=== PATIENT | female | born 1990 | race Caucasian/White ===

== ENCOUNTER 2021-08-13 19:50 | Emergency (ER) | payer BC, OTHER ==
[2021-08-13] MEDS ORDERED: BABY ASPIRIN 81 MG CHEW PO ONE (20:07)
--- NOTE | 2021-08-13 20:07 | ERPHSYRPT ---
- History of Present Illness Time Seen by Provider: 08/13/21 20:07 Historian: patient Exam Limitations: no limitations Physician History: This is a overweight 30-year-old white female who complains of left chest tenderness that describes as pulling tightening pressure that is been intermittent today. She has had tenderness in the left chest in the past but it was more of a burning sensation. Patient does have a history of cholelithiasis and is scheduled to have her gallbladder removed. She is unsure if this is what is causing her discomfort. She is not short of breath. She herself has no coronary artery disease. She is not on any medications chronically. She does have a family history of coronary artery disease. She has no bleeding or clotting disorders. She has no cough. She had no fever or flulike symptoms. At the time of this examination, she has no chest pain. Timing/Duration: today Activities at Onset: none Quality: pressure, tightness, other (Left anterior chest) Location: other (Left anterior chest) Chest Pain Radiation: no radiation Severity of Pain-Max: mild (Moderate) Severity of Pain-Current: none Modifying Factors: Improves With: nothing Associated Symptoms: denies symptoms Prior Chest Pain/Cardiac Workup: no prior chest pain, no prior cardiac workup Nitro Today/Relief: no nitro taken today Aspirin Treatment Today: no aspirin today Allergies/Adverse Reactions: No Known Drug Allergies Allergy (Verified 08/13/21 20:05) Home Medications: Mv-Mins/Folic Acid/Guarana/Caf [One Daily Tablet] 1 each PO DAILY 08/13/21 [History] Travel Risk - International Travel Have you traveled outside of the country in past 3 weeks: No - Coronavirus Screening Are you exhibiting any of the following symptoms?: No Close contact with a COVID-19 positive Pt in past 14-21 Days: No - Review of Systems Constitutional: No Symptoms Eyes: No Symptoms Ears, Nose, & Throat: No Symptoms Respiratory: No Symptoms Cardiac: Chest Pain Abdominal/Gastrointestinal: No Symptoms Genitourinary Symptoms: No Symptoms Musculoskeletal: No Symptoms Skin: No Symptoms Neurological: No Symptoms Psychological: No Symptoms Endocrine: No Symptoms Hematologic/Lymphatic: No Symptoms Immunological/Allergic: No Symptoms All Other Systems: Reviewed and Negative - Past Medical History Pertinent Past Medical History: No Neurological History: No Pertinent History ENT History: No Pertinent History Cardiac History: No Pertinent History Respiratory History: No Pertinent History Endocrine Medical History: No Pertinent History Musculoskeletal History: No Pertinent History GI Medical History: No Pertinent History History: No Pertinent History Psycho-Social History: No Pertinent History Female Reproductive Disorders: No Pertinent History Other Medical History: Gestational Diabetes - Past Surgical History Past Surgical History: Yes Neuro Surgical History: No Pertinent History Cardiac: No Pertinent History Respiratory: No Pertinent History Gastrointestinal: No Pertinent History Genitourinary: No Pertinent History Musculoskeletal: No Pertinent History Female Surgical History: Section Other Surgical History: Tonsillectomy - Social History Smoking Status: Former smoker Exposure to second hand smoke: No Drug Use: none - Nursing Vital Signs Nursing Vital Signs: Initial Vital Signs Temperature 98.1 F 08/13/21 20:08 Pulse Rate 75 08/13/21 20:08 Respiratory Rate 16 08/13/21 20:08 Blood Pressure 122/84 08/13/21 20:08 O2 Sat by Pulse Oximetry 99 08/13/21 20:08 Pain Scale Pain Intensity 4 - Physical Exam General Appearance: no apparent distress, alert, anxiety, obese Eye Exam: PERRL/EOMI, eyes nml inspection Ears, Nose, Throat Exam: normal ENT inspection, moist mucous membranes Neck Exam: normal inspection, non-tender, supple, full range of motion Respiratory Exam: normal breath sounds, lungs clear, airway intact, other (No chest tenderness at the time of this exam), No respiratory distress Cardiovascular Exam: regular rate/rhythm, normal heart sounds, normal peripheral pulses Gastrointestinal/Abdomen Exam: soft, normal bowel sounds, No tenderness Pelvic Exam: not done Rectal Exam: not done Back Exam: normal inspection, normal range of motion, No CVA tenderness, No vertebral tenderness Extremity Exam: normal inspection, normal range of motion, pelvis stable Neurologic Exam: alert, oriented x 3, cooperative, paving block cutter II-XII nml as tested, normal mood/affect, nml cerebellar function, nml station & gait, sensation nml Skin Exam: normal color, warm, dry Lymphatic Exam: No adenopathy SpO2 Interpretation: normal O2 Delivery: Room Air - Course Nursing assessment & vital signs reviewed: Yes EKG Interpreted by Me: RATE (76), Sinus Rhythm, NORMAL AXIS, NORMAL INTERVALS, NORMAL QRS, NORMAL ST-T, Other (Acute ischemic changes on today's EKG. No prior EKGs available for comparison) Ordered Tests: Active Orders 24 hr Category Date Time Status EKG-ER Only STAT Care 08/13/21 20:07 Active IV Insertion STAT Care 08/13/21 20:07 Active Pulse Oximetry (ED) STAT Care 08/13/21 20:07 Active CHEST 1 VIEW (PORTABLE) Stat Exams 08/13/21 20:07 Taken CBC W DIFF Stat Lab 08/13/21 20:47 Completed CMP Stat Lab 08/13/21 20:47 Completed D-DIMER QUANTITATIVE Stat Lab 08/13/21 20:47 Completed NT PRO BNP Stat Lab 08/13/21 20:47 Completed TROPONIN Q3H Lab 08/13/21 20:47 Completed TROPONIN Q3H Lab 08/13/21 23:15 Ordered TROPONIN Q3H Lab 08/14/21 02:15 Ordered TROPONIN Q3H Lab 08/14/21 05:15 Ordered TROPONIN Q3H Lab 08/14/21 08:15 Ordered Medication Summary Discontinued Medications Generic Name Dose Route Start Last Admin Trade Name Freq PRN Reason Stop Dose Admin Aspirin 324 mg 08/13/21 20:07 08/13/21 20:30 Aspirin 81 Mg Tab.Chew PO 08/13/21 20:08 324 mg STAT ONE Administration Lab/Rad Data: Laboratory Result Diagrams 08/13/21 20:47 08/13/21 20:47 Laboratory Results 08/13/21 08/13/21 08/13/21 Range/Units 20:47 20:47 20:47 WBC (4.0-10.5) K/mm3 RBC (4.1-5.4) M/mm3 Hgb (12.0-16.0) gm/dl Hct (35-47) % MCV (78-100) fl MCH (26-32) pg MCHC (32-36) g/dl RDW (11.5-14.0) % Plt Count (150-450) K/mm3 MPV (7.5-11.0) fl Gran % (36.0-66.0) % Eos # (Auto) (0-0.5) Absolute Lymphs (auto) (1.0-4.6) Absolute Monos (auto) (0.0-1.3) Lymphocytes % (24.0-44.0) % Monocytes % (0.0-12.0) % Eosinophils % (0.00-5.0) % Basophils % (0.0-0.4) % Absolute Granulocytes (1.4-6.9) Basophils # (0-0.4) D-Dimer < 215 L (215-500) ng/mL Sodium 140 (137-145) mmol/L Potassium 4.4 (3.5-5.1) mmol/L Chloride 104 (98-107) mmol/L Carbon Dioxide 27 (22-30) mmol/L Anion Gap 13.3 (5-15) MEQ/L BUN 14 (7-17) mg/dL Creatinine 0.90 (0.52-1.04) mg/dL Estimated GFR > 60.0 ML/MIN Glucose 94 (74-106) mg/dL Calcium 10.0 (8.4-10.2) mg/dL Total Bilirubin 0.50 (0.2-1.3) mg/dL AST 40 H (14-36) U/L ALT 47 H (0-35) U/L Alkaline Phosphatase 53 (38-126) U/L Troponin I < 0.012 (0.000-0.034) ng/mL NT-Pro-B Natriuret Pep < 11.5 (0-450) pg/mL Serum Total Protein 7.4 (6.3-8.2) g/dL Albumin 4.7 (3.5-5.0) g/dL 08/13/21 Range/Units 20:47 WBC 8.1 (4.0-10.5) K/mm3 RBC 5.06 (4.1-5.4) M/mm3 Hgb 14.5 (12.0-16.0) gm/dl Hct 43.7 (35-47) % MCV 86.4 (78-100) fl MCH 28.7 (26-32) pg MCHC 33.2 (32-36) g/dl RDW 13.0 (11.5-14.0) % Plt Count 314 (150-450) K/mm3 MPV 11.1 H (7.5-11.0) fl Gran % 65.5 (36.0-66.0) % Eos # (Auto) 0.21 (0-0.5) Absolute Lymphs (auto) 2.05 (1.0-4.6) Absolute Monos (auto) 0.51 (0.0-1.3) Lymphocytes % 25.2 (24.0-44.0) % Monocytes % 6.3 (0.0-12.0) % Eosinophils % 2.6 (0.00-5.0) % Basophils % 0.4 (0.0-0.4) % Absolute Granulocytes 5.34 (1.4-6.9) Basophils # 0.03 (0-0.4) D-Dimer (215-500) ng/mL Sodium (137-145) mmol/L Potassium (3.5-5.1) mmol/L Chloride (98-107) mmol/L Carbon Dioxide (22-30) mmol/L Anion Gap (5-15) MEQ/L BUN (7-17) mg/dL Creatinine (0.52-1.04) mg/dL Estimated GFR ML/MIN Glucose (74-106) mg/dL Calcium (8.4-10.2) mg/dL Total Bilirubin (0.2-1.3) mg/dL AST (14-36) U/L ALT (0-35) U/L Alkaline Phosphatase (38-126) U/L Troponin I (0.000-0.034) ng/mL NT-Pro-B Natriuret Pep (0-450) pg/mL Serum Total Protein (6.3-8.2) g/dL Albumin (3.5-5.0) g/dL - Progress Progress: improved, re-examined Air Movement: good Progress Note: 08/13/21 21:47 Chest x-ray shows no acute cardiopulmonary process. Blood Culture(s) Obtained: No Antibiotics given: No Counseled pt/family regarding: lab results, diagnosis, need for follow-up, rad results - Departure Departure Disposition: Home Clinical Impression: Non-cardiac chest pain Condition: Stable Critical Care Time: No Referrals: JEWEL SANTANA NP [NON-STAFF PHY W/O PRIVILEGES] - Follow up/PCP as directed Additional Instructions: Follow-up with your primary care provider for further evaluation and management
[2021-08-13 20:50] LABS: Absolute Neutrophil Ct (ANC) 5.34 (1.4-6.9); Basophil (Absolute #) 0.03 (0-0.4); Eosinophil % 2.6 % (0.00-5.0); Eosinophil (Absolute #) 0.21 (0-0.5); Hematocrit 43.7 % (35-47); Hemoglobin 14.5 gm/dl (12.0-16.0); Lymphocyte (Absolute #) 2.05 (1.0-4.6); Lymphocytes % 25.2 % (24.0-44.0); Mean Cell Volume 86.4 fl (78-100); Mean Corpuscular Hemoglobin 28.7 pg (26-32); Mean Corpuscular Hgb Concent. 33.2 g/dl (32-36); Mean Platelet Volume 11.1 fl (7.5-11.0); Monocyte (Absolute #) 0.51 (0.0-1.3); Monocytes % 6.3 % (0.0-12.0); Neutrophil % 65.5 % (36.0-66.0); Platelet Count 314 K/mm3 (150-450); Red Blood Count 5.06 M/mm3 (4.1-5.4); White Blood Count 8.1 K/mm3 (4.0-10.5)
[2021-08-13 21:11] VITALS: O2SAT 98
[2021-08-13 21:14] LABS: ALBUMIN 4.7 g/dL (3.5-5.0); ALKALINE PHOSPHATASE 53 U/L (38-126); ANION GAP 13.3 MEQ/L (5-15); BLOOD UREA NITROGEN 14 mg/dL (7-17); CHLORIDE 104 mmol/L (98-107); Carbon Dioxide 27 mmol/L (22-30); EST GLOMERULAR FILTRATION RATE > 60.0 ML/MIN; Glucose 94 mg/dL (74-106); NT PRO BNP < 11.5 pg/mL (0-450); Potassium 4.4 mmol/L (3.5-5.1); SGOT/AST 40 U/L (14-36); SGPT/ALT 47 U/L (0-35); SODIUM 140 mmol/L (137-145); Total Protein 7.4 g/dL (6.3-8.2)
[2021-08-13 22:01] VITALS: BP 118/78; PULSE 79
--- NOTE | 2021-08-14 08:55 | XRAY ---
Indication: Chest pain. Comparison: None Portable chest demonstrates normal heart, lungs, and bony thorax.
== END 2021-08-13 22:14 | disposition home or self-care (01) ==
LOC: ED 19:50
DX: R07.89 Other chest pain (principal)
CPT/HCPCS: 36000; 36415; 71045; 80053; 83880; 84484; 85025; 85379; 93005; 94760; 99284; A9270-GY

== ENCOUNTER 2021-09-28 08:45 | Day surgery (SDC) | payer BC, OTHER ==
--- NOTE | 2021-09-21 11:00 | HP ---
DATE OF SURGERY: 09/28/2021 HISTORY OF PRESENT ILLNESS: The patient is a 31-year-old female who presents with cholelithiasis. The patient states eating fatty or greasy food gives left upper quadrant to epigastric pain that radiates to the back. The patient went to the emergency room for this. Cardiac was ruled out negative. She has had some diarrhea with this at times. She states that this is not a reflux pain. Apparently she had some elevated liver function tests at that time when she went to the emergency room. PAST MEDICAL HISTORY: None. PAST SURGICAL HISTORY: Umbilical hernia repair. Tonsillectomy. Three sections. ALLERGIES: NKDA. MEDICATIONS: None. FAMILY HISTORY: Diabetes, hypertension. SOCIAL HISTORY: Negative. REVIEW OF SYSTEMS: CONSTITUTIONAL: Denies fever or chills. CHEST: Denies shortness of breath. CVS: Denies chest pain. ABDOMEN: Reports left upper quadrant pain. Denies nausea or vomiting. Reports diarrhea. Denies constipation or rectal bleeding. PHYSICAL EXAMINATION: GENERAL: No acute distress. CHEST: Nonlabored. No shortness of breath. CVS: Regular rate and rhythm. ABDOMEN: Soft, nontender. IMPRESSION: Symptomatic cholelithiasis. PLAN: Laparoscopic cholecystectomy with Dr. Fransico Crooks. As dictated by Velvet Scales NP.
[~2021-09-28 08:45] MED LIST: Sensorcaine 0.25% 10 ML ONE
[2021-09-28] MEDS ORDERED: Lactated Ringers 1,000 ML IV ONE ×2 (09:12→13:56)
[2021-09-28] MEDS ORDERED: MEFOXIN 2 GM PREMIX** 2 GM/50 ML ML IV ONE (09:12)
[2021-09-28] MEDS: Lactated Ringers 1,000 ML IV SCH ×2 (09:19→13:58)
[2021-09-28] MEDS ORDERED: MEFOXIN 2 GM PREMIX** 2 GM/50 ML ML IV SCH (10:00)
[2021-09-28] MEDS ORDERED: Versed 2 MG/2 ML Injection IV ONE (11:07)
[2021-09-28] MEDS ORDERED: SUBLIMAZE 100 MCG/2 ML ONE ×2 (11:27→12:05)
[2021-09-28] MEDS ORDERED: Zemuron 100 MG/10 ML ONE ×2 (11:27→11:54)
[2021-09-28] MEDS ORDERED: DIPRIVAN 200 MG/20 ML IV ONE (11:27)
[2021-09-28] MEDS ORDERED: Xylocaine-Mpf 2% 5 Ml Vial ONE (11:29)
[2021-09-28] MEDS ORDERED: Zofran 4 MG/2 ML VIAL ONE (11:59)
[2021-09-28] MEDS ORDERED: TORAdol 30 mg Injection ONE (11:59)
[2021-09-28] MEDS ORDERED: BRIDION 200MG/2ML IV ONE (12:06)
--- NOTE | 2021-09-28 13:44 | OP ---
SURGERY DATE/TIME: 09/28/2021 1130 PREOPERATIVE DIAGNOSIS: Symptomatic cholelithiasis. POSTOPERATIVE DIAGNOSIS: Symptomatic cholelithiasis. PROCEDURE: Laparoscopic cholecystectomy. SURGEON: Dr. Fransico Crooks. ANESTHESIA: General endotracheal tube. ESTIMATED BLOOD LOSS: None. COMPLICATIONS: None. CONDITION: Stable. INDICATIONS: A patient with symptomatic disease. DESCRIPTION OF PROCEDURE AND FINDINGS: Taken to surgery. General anesthetic, routine prep and drape. Right upper quadrant Veress needle inserted. Insufflating pressure 14. Four - 5's. Good visualization. Cystic duct defined. Cystic artery defined. Both structures triply clipped and transected. Clips noted across and well approximated. Gallbladder delivered off the liver edge up through the epigastric port widened slightly, delivered. Stone material had to be delivered first and then the gallbladder. Field was totally dry and clean. Hole closure device was used at the epigastric portion. Skin closed with 4-0 Vicryl. CO2 exsufflated. The patient tolerated the procedure satisfactorily.
[2021-09-28] MEDS ORDERED: Zofran 4 MG/2 ML VIAL IV STA (14:34)
[2021-09-28 14:50] VITALS: BP 109/61; PULSE 94; O2SAT 93
== END 2021-09-28 15:00 | disposition home or self-care (01) ==
LOC: SDC 08:45
PROVIDERS: ATTEND Surgery
DX: K80.20 Calculus of gallbladder without cholecystitis without obstruction (principal)
CPT/HCPCS: 84703; J0694; J1885; J2250; J2405; J2704; J3010